=== PATIENT | female | born 1940 | race Caucasian/White ===

== ENCOUNTER 2017-03-10 14:54 | Emergency (ER) | payer OTHER ==
[~2017-03-10] VITALS: Ht 160 cm; Wt 73.8 kg
[2017-03-10 16:17] LABS: HEMATOCRIT 33.3 % (36.0-46.0); MCH 33.2 PG (29.0-34.0); MCHC 33.9 G/DL (30.0-36.0); MCV 97.9 FL (83-99); MEAN PLAT.VOLUME 10.3 uM^3 (9.5-12.4); PLATELET COUNT 221 K/uL (156-360); RBC DIS.WIDTH-CV 12.5 % (11.8-14.6); RBC DIS.WIDTH-SD 44.7 % (39-53); WHITE BLOOD COUNT 6.9 K/uL (4.1-10.2)
[2017-03-10 16:27] LABS: CHLORIDE 107 mEq/L (99-109); POTASSIUM 4.4 mEq/L (3.7-5.4); SODIUM 143 mEq/L (136-147)
[2017-03-10 16:29] LABS: GLUCOSE 98 mg/dL (70-99)
[2017-03-10 16:30] LABS: ANION GAP 11 MEQ/L (2-14)
[2017-03-10 16:32] LABS: GFR ESTIMATE (CALCULATED) 51 mL/min/
[2017-03-10 16:33] LABS: UREA NITROGEN (BUN) 27 mg/dL (9-23)
[2017-03-10] MEDS ORDERED: KEFLEX500 MG PO (16:45)
[2017-03-10 17:19] VITALS: BP 128/72
== END 2017-03-10 17:19 | disposition home or self-care (01) ==
LOC: EME 14:54
PROVIDERS: Physician Assistant Medical
DX: L97.329 Non-pressure chronic ulcer of left ankle with unspecified severity (principal); Z85.3 Personal history of malignant neoplasm of breast; Z90.12 Acquired absence of left breast and nipple; Z85.528 Personal history of other malignant neoplasm of kidney
CPT/HCPCS: 73610; 80048; 83605; 85027; 87040; 99281; 99283